=== PATIENT | female | born 2000 | race Caucasian/White ===

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

== ENCOUNTER 2020-10-01 09:15 | Emergency (ER) | payer MEDICAID ==
[~2020-10-01] VITALS: Ht 165.1 cm; Wt 104.3 kg
[~2020-10-01 09:15] MED LIST changes: -ACYC400T PO; +ACYC400T21 PO
--- NOTE | 2020-10-01 10:46 | ED General ---
General Chief Complaint: Cough/Cold/Flu Symptoms Stated Complaint: COVID EXPOSURE;SOB;COUGH Nursing Triage Note: PT AMBULATE TO ROOM 10 WITH C/O COUGH, SOB, AND CHEST HURTS WHEN SHE COUGHS. PT REPORTS SO TESTED POS FOR COVID YESTERDAY. Allergies and Home Medications Allergies Coded Allergies: No Known Drug Allergies (Unverified , 03/24/19) Home Medications Acyclovir 400 Mg Tablet, 400 MG PO TID Prescribed by: CHARISMA LOPEZ on 03/24/19 8563 Past Mylmxji-Ukfize-Warovr Hx Patient Social History Tobacco Use?: No Smoking Status: Never a Smoker Substance use?: No Alcohol Use?: No Pt feels they are or have been: No Past Medical History Surgeries: Yes (Dental) Adenoidectomy, Tonsillectomy Respiratory: No Cardiac: No Neurological: No Reproductive Disorders: Yes (Patient verbalized last month was treated for Vaginal infection antibiotics) Sexually Transmitted Disease: No Genitourinary: No Gastrointestinal: No Musculoskeletal: No Endocrine: No HEENT: No Cancer: No Psychosocial: Yes Anxiety, Depression Integumentary: No Physical Exam Vital Signs Vital Signs - First Documented 10/01/20 09:26 Temp 36.7 Pulse 118 Resp 18 B/P (MAP) 122/78 (93) O2 Delivery Room Air Capillary Refill : Less Than 3 Seconds Height, Weight, BMI Height: '" Weight: lbs. oz. kg; 38.00 BMI Method: Progress/Results/Core Measures Suspected Sepsis SIRS Temperature: Pulse: 118 Respiratory Rate: 18 Blood Pressure 122 /78 Mean: 93 Results/Orders Lab Results Laboratory Tests Test 10/01/20 09:32 Range/Units Influenza Type A (RT-PCR) Not Detected Not Detecte Influenza Type B (RT-PCR) Not Detected Not Detecte SARS-CoV-2 RNA (RT-PCR) Detected H Not Detecte My Orders Orders - CHARISMA MUJICA MD Covid 19 Inhouse Test (10/01/20 09:27) Influenza A And B By Pcr (10/01/20 09:27) Vital Signs/I&O 10/01/20 10/01/20 09:26 09:30 Temp 36.7 Pulse 118 Resp 18 B/P (MAP) 122/78 (93) O2 Delivery Room Air Room Air Capillary Refill : Less Than 3 Seconds Blood Pressure Mean: 93 Departure Impression Primary Impression: COVID-19 Disposition: 01 HOME, SELF-CARE Condition: Improved Departure-Patient Inst. Decision time for Depature: 10:47 Referrals: NO,LOCAL PHYSICIAN (PCP/Family) Primary Care Physician Patient Instructions: COVID-19 Vaccines, COVID-19 (DC) Add. Discharge Instructions: Observe mandatory quarantine this during your Covid infection. He must quarantine for at least 10 days from onset of symptoms and until all symptoms have resolved. Any close contacts to you must quarantine for 10 days after their last contact with you that has occurred during your illness. Drink plenty of clear liquids to stay well-hydrated. You may take ibuprofen up to 600 mg every 6 hours and/or Tylenol (acetaminophen) up to 1000 mg every 6 hours as needed for fever or pains. You may monitor your oxygen saturations with a pulse oximeter. If you have repeated measurements of below 92% or any measurement under 90%, return to the emergency room for reevaluation. A multivitamin may help boost your immune system along with a well-balanced diet. Other supplements such as vitamin C, vitamin D, elderberry, zinc, etc. may be beneficial but should not be taken in higher doses than recommended per package instructions. Call with questions or concerns. The pharmacy should be contacting you regarding the monoclonal antibody infusion. You may call back if you have not heard from the pharmacy within 48 hours. Return to the ER if you have worsening symptoms or new concerns. All discharge instructions reviewed with patient and/or family. Voiced understanding. CHARISMA MUJICA MD Oct 01, 2020 10:46
[2020-10-01 11:07] VITALS: BP 122/78
== END 2020-10-01 11:07 | disposition home or self-care (01) ==
LOC: EDUNIT# 09:15 → ER 09:16
DX: U07.1 COVID-19 (principal)
CPT/HCPCS: 87636; 99282

== ENCOUNTER 2021-05-29 13:58 | Emergency (ER) | payer MEDICAID ==
[~2021-05-29] VITALS: Ht 165.1 cm; Wt 113.4 kg
[2021-05-29] MEDS ORDERED: diphenhydrAMINE 50 MG/ML INJ (BENADRYL) IVP ONE (15:00)
[2021-05-29] MEDS ORDERED: KETOROLAC 30 MG/ML VIAL IVP ONE (15:00)
[2021-05-29] MEDS ORDERED: PROCHLORPERAZINE 10 MG/2ML INJ (COMPAZINE) IV ONE (15:00)
--- NOTE | 2021-05-29 15:00 | ED General ---
General Chief Complaint: General Problems/Pain Stated Complaint: CHEST PAIN - R SIDE NUMB Source of Information: Patient Exam Limitations: No Limitations History of Present Illness Date Seen by Provider: May 29, 2021 Time Seen by Provider: 14:51 Initial Comments To ER by private vehicle with reports of 1 hour history of right sided arm and leg numbness and spots in her vision. 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 This was explained to her that the artery was "clogged" and made her high risk for stroke. She does report a headache 3 out of 10 currently. Timing/Duration: 1-2 Days Severity: Moderate Associated Systoms: Denies Symptoms Allergies and Home Medications Allergies Coded Allergies: No Known Drug Allergies (Unverified , 03/24/19) Patient Home Medication List Home Medication List Reviewed: Yes Acyclovir (Acyclovir) 400 Mg Tablet, 400 MG PO TID Prescribed by: CHARISMA LOPEZ on 03/24/19 6757 Review of Systems Review of Systems Constitutional: see HPI; No dizziness EENTM: see HPI, other ("spots in her vision") Respiratory: no symptoms reported Cardiovascular: no symptoms reported Genitourinary: no symptoms reported Musculoskeletal: no symptoms reported Skin: no symptoms reported Psychiatric/Neurological: No Symptoms Reported Hematologic/Lymphatic: No Symptoms Reported Immunological/Allergic: no symptoms reported Past Omqarfo-Ttnaey-Qjlagu Hx Past Medical History Surgeries: Yes (Dental) Adenoidectomy, Tonsillectomy Respiratory: No Cardiac: No Neurological: No Reproductive Disorders: Yes (Patient verbalized last month was treated for Vaginal infection antibiotics) Sexually Transmitted Disease: No Genitourinary: No Gastrointestinal: No Musculoskeletal: No Endocrine: No HEENT: No Cancer: No Psychosocial: Yes Anxiety, Depression Integumentary: No Physical Exam Vital Signs Vital Signs - First Documented 05/29/21 14:40 Temp 36.1 Pulse 116 Resp 22 B/P (MAP) 125/70 (88) Pulse Ox 100 O2 Delivery Room Air Capillary Refill : Height, Weight, BMI Height: '" Weight: lbs. oz. kg; 38.00 BMI Method: General Appearance: No Apparent Distress, WD/WN, Anxious, Other (Heart rate 117 sinus) Eyes: Bilateral Eye Normal Inspection, Bilateral Eye PERRL HEENT: PERRL/EOMI, TMs Normal Neck: Full Range of Motion, Normal Inspection Respiratory: No Accessory Muscle Use, No Respiratory Distress Cardiovascular: Regular Rate, Rhythm, Normal Peripheral Pulses Gastrointestinal: Normal Bowel Sounds, Non Tender, Soft Extremity: Normal Capillary Refill, Normal Inspection Neurologic/Psychiatric: Alert, Oriented x3 Skin: Normal Color, Warm/Dry Progress/Results/Core Measures Suspected Sepsis SIRS Temperature: Pulse: Respiratory Rate: Laboratory Tests 05/29/21 15:14: White Blood Count 9.6 Blood Pressure / Mean: Laboratory Tests 05/29/21 15:14: Creatinine 0.83, Platelet Count 364, Total Bilirubin 0.3 Results/Orders Lab Results Laboratory Tests Test 05/29/21 15:14 Range/Units White Blood Count 9.6 4.3-11.0 10^3/uL Red Blood Count 4.64 3.80-5.11 10^6/uL Hemoglobin 12.2 11.5-16.0 g/dL Hematocrit 37 35-52 % Mean Corpuscular Volume 80 80-99 fL Mean Corpuscular Hemoglobin 26 25-34 pg Mean Corpuscular Hemoglobin Concent 33 32-36 g/dL Red Cell Distribution Width 14.0 10.0-14.5 % Platelet Count 364 130-400 10^3/uL Mean Platelet Volume 10.1 9.0-12.2 fL Immature Granulocyte % (Auto) 0 % Neutrophils (%) (Auto) 70 42-75 % Lymphocytes (%) (Auto) 23 12-44 % Monocytes (%) (Auto) 6 0-12 % Eosinophils (%) (Auto) 1 0-10 % Basophils (%) (Auto) 0 0-10 % Neutrophils # (Auto) 6.7 1.8-7.8 10^3/uL Lymphocytes # (Auto) 2.2 1.0-4.0 10^3/uL Monocytes # (Auto) 0.5 0.0-1.0 10^3/uL Eosinophils # (Auto) 0.1 0.0-0.3 10^3/uL Basophils # (Auto) 0.0 0.0-0.1 10^3/uL Immature Granulocyte # (Auto) 0.0 0.0-0.1 10^3/uL D-Dimer 0.31 0.00-0.49 UG/ML Sodium Level 139 135-145 MMOL/L Potassium Level 4.1 3.6-5.0 MMOL/L Chloride Level 111 H 98-107 MMOL/L Carbon Dioxide Level 19 L 21-32 MMOL/L Anion Gap 9 5-14 MMOL/L Blood Urea Nitrogen 11 7-18 MG/DL Creatinine 0.83 0.60-1.30 MG/DL Estimat Glomerular Filtration Rate 103 BUN/Creatinine Ratio 13 Glucose Level 89 70-105 MG/DL Calcium Level 9.4 8.5-10.1 MG/DL Corrected Calcium 9.3 8.5-10.1 MG/DL Total Bilirubin 0.3 0.1-1.0 MG/DL Aspartate Amino Transf (AST/SGOT) 21 5-34 U/L Alanine Aminotransferase (ALT/SGPT) 21 0-55 U/L Alkaline Phosphatase 60 40-136 U/L Total Protein 7.4 6.4-8.2 GM/DL Albumin 4.1 3.2-4.5 GM/DL Serum Test, Qualitative NEGATIVE NEGATIVE My Orders Orders - KAHLIL ZEE APRN Ketorolac Injection (Toradol Injection) (05/29/21 15:00) Prochlorperazine Injection (Compazine In (05/29/21 15:00) Diphenhydramine Injection (Benadryl Inje (05/29/21 15:00) Cbc With Automated Diff (05/29/21 14:50) Hcg,Qualitative Serum (05/29/21 14:50) Comprehensive Metabolic Panel (05/29/21 14:50) Fibrin Degradation Products (05/29/21 14:50) Medications Given in ED Current Medications Medications Dose Ordered Sig/Radha Route Start Time Stop Time Status Last Admin Dose Admin Diphenhydramine HCl 25 mg ONCE ONCE IVP 05/29/21 15:00 05/29/21 15:01 DC 05/29/21 15:08 25 MG Ketorolac Tromethamine 15 mg ONCE ONCE IVP 05/29/21 15:00 05/29/21 15:01 DC 05/29/21 15:08 15 MG Prochlorperazine Edisylate 5 mg ONCE ONCE IV 05/29/21 15:00 05/29/21 15:01 DC 05/29/21 15:08 5 MG Vital Signs/I&O 05/29/21 14:40 Temp 36.1 Pulse 116 Resp 22 B/P (MAP) 125/70 (88) Pulse Ox 100 O2 Delivery Room Air Capillary Refill : Departure Communication (Admissions) 1534-I discussed with her that this CT finding of congenitally hypoplastic left vertebral artery does not mean that the artery is "clogged" but underdeveloped. Discussed with her that if we were to be concerned of a stroke as a result of this incidental finding on her MRI, this is posterior circulation and would r esult in balance/gait abnormalities, dizziness and would be unrelated to her right arm and right leg numbness---those would be consistent with anterior circulation stroke. She is appreciative of that information and states that eases her mind. I would suspect that given her extensive migraine history and her current headache this is related to a migraine variant. 1618-headache is completely resolved as is her numbness and tingling of the right side. Impression Primary Impression: Migraine variant Disposition: 01 HOME, SELF-CARE Condition: Stable Departure-Patient Inst. Decision time for Depature: 16:18 Referrals: NO,LOCAL PHYSICIAN (PCP/Family) Primary Care Physician Patient Instructions: Migraines in Adults Add. Discharge Instructions: 1. Return to ER for any concerns. Follow-up with your doctor next week. All discharge instructions reviewed with patient and/or family. Voiced understanding. KAHLIL ZEE APRN May 29, 2021 15:00
[2021-05-29 15:21] LABS: BASOPHILS % (AUTO) 0 % (0-10); EOSINOPHILS # (AUTO) 0.1 10^3/uL (0.0-0.3); EOSINOPHILS % (AUTO) 1 % (0-10); HEMATOCRIT 37 % (35-52); HEMOGLOBIN 12.2 g/dL (11.5-16.0); LYMPHOCYTES # (AUTO) 2.2 10^3/uL (1.0-4.0); LYMPHOCYTES % (AUTO) 23 % (12-44); MEAN CORPUSCULAR HEMOGLOBIN 26 pg (25-34); MEAN CORPUSCULAR HGB CONC 33 g/dL (32-36); MEAN CORPUSCULAR VOLUME 80 fL (80-99); MEAN PLATELET VOLUME 10.1 fL (9.0-12.2); MONOCYTES # (AUTO) 0.5 10^3/uL (0.0-1.0); MONOCYTES % (AUTO) 6 % (0-12); NEUTROPHILS # (AUTO) 6.7 10^3/uL (1.8-7.8); NEUTROPHILS % (AUTO) 70 % (42-75); PLATELET COUNT 364 10^3/uL (130-400); WHITE BLOOD COUNT 9.6 10^3/uL (4.3-11.0)
[2021-05-29 15:29] LABS: ALBUMIN 4.1 GM/DL (3.2-4.5); POTASSIUM 4.1 MMOL/L (3.6-5.0)
[2021-05-29 15:30] LABS: CALCIUM 9.4 MG/DL (8.5-10.1)
[2021-05-29 15:31] LABS: TOTAL PROTEIN 7.4 GM/DL (6.4-8.2)
[2021-05-29 15:33] LABS: BILIRUBIN,TOTAL 0.3 MG/DL (0.1-1.0)
[2021-05-29 15:35] LABS: CREATININE SERUM 0.83 MG/DL (0.60-1.30)
[2021-05-29 16:27] VITALS: BP 106/67
== END 2021-05-29 16:27 | disposition home or self-care (01) ==
LOC: EDUNIT# 13:58 → ER 13:59
DX: G43.909 Migraine, unspecified, not intractable, without status migrainosus (principal); Q28.1 Other malformations of precerebral vessels; Z32.02 Encounter for pregnancy test, result negative
CPT/HCPCS: 36415; 80053; 84703; 85025; 85379; 93005; 99281

== ENCOUNTER → 2022-02-04 | Outpatient (CLI) | payer MEDICAID, OTHER ==
--- NOTE | 2022-02-04 16:59 | Diagnostic Imaging Report ---
INDICATION: Pelvic pain Pelvic sonography performed with transabdominal and transvaginal views. The uterus measured 6.9 x 3.7 x 5.7 cm and was mildly anteverted. No uterine lesion is seen. Endometrium measured 2 mm. The right ovary measured 2.3 x 1.4 x 1.6 cm and appeared normal with normal color flow. Left ovary measured 3.1 x 1.5 x 2.4 cm and appeared normal with normal color flow. There is no free fluid. IMPRESSION: Negative pelvic sonography. Dictated by: Dictated on workstation # [id number]
== END ==
LOC: RAD 15:07
PROVIDERS: ATTEND Surgery
DX: R10.2 Pelvic and perineal pain (principal)
CPT/HCPCS: 76830; 76856

== ENCOUNTER 2022-07-26 19:22 | Emergency (ER) | payer MEDICAID ==
[~2022-07-26] VITALS: Ht 165.1 cm; Wt 113.4 kg
[2022-07-26 19:32] VITALS: BP 146/89
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
[2022-07-26] MEDS ORDERED: TETANUS,DIPTH,PERTUSS P/F (BOOSTRIX) 0.5 ML VIAL IM ONE (19:45)
== END 2022-07-26 19:52 | disposition home or self-care (01) ==
LOC: EDUNIT# 19:22 → ER 19:25
DX: T21.21XA Burn of second degree of chest wall, initial encounter (principal); E66.9 Obesity, unspecified; F41.9 Anxiety disorder, unspecified; F32.A Depression, unspecified; Z79.899 Other long term (current) drug therapy; Z23 Encounter for immunization; Z28.310 Unvaccinated for COVID-19; Z68.41 Body mass index [BMI] 40.0-44.9, adult; X11.8XXA Contact with other hot tap-water, initial encounter; Y93.G3 Activity, cooking and baking
CPT/HCPCS: 90715; 99284